=== PATIENT | female | born 1995 | race American Indian/Alaskan Native ===

== ENCOUNTER 2017-11-29 21:48 | Emergency (ER) | payer SELFPAY ==
[2017-11-29] MEDS ORDERED: Sodium Chloride 0.9% 1,000 ML IV ONE ×2 (22:32→22:42)
[2017-11-29 22:54] LABS: BASO # 0.1 K/uL (0.0-0.2); BASO % 0.7 % (0.0-2.0); EOS % 0.5 % (0.0-4.0); HEMOGLOBIN 14.9 g/dL (11.0-16.0); LYMPH # 1.9 K/uL (1.0-4.3); LYMPH % 26.2 % (20.0-40.0); MEAN CELL VOLUME 90.6 fL (81.0-99.0); MEAN CORPUSCULAR HGB CONC 35.3 g/dL (33.0-37.0); MEAN PLATELET VOLUME 10.5 fL (7.2-11.7); MONO # 0.6 K/uL (0.0-0.8); MONO % 8.3 % (0.0-10.0); NEUT # 4.7 K/uL (1.8-7.0); NEUT % 64.3 % (50.0-75.0); NRBC % 0.1 % (0.0-2.0); RBC 4.65 Mil/uL (3.80-5.20); RED CELL DISTRIBUTION WIDTH 12.1 % (11.5-14.5); WHITE BLOOD COUNT 7.3 K/uL (4.8-10.8)
[2017-11-29 23:00] LABS: SQUAMOUS EPITHIAL 24 /hpf (0-5); URINE BACTERIA FEW (<OCC); URINE BILIRUBIN 1+ (NEGATIVE); URINE BLOOD NEGATIVE (NEGATIVE); URINE CLARITY Hazy (Clear); URINE GLUCOSE (UA) NORMAL (Normal); URINE LEUKOCYTE ESTERASE 2+ Leu/uL (Negative); URINE PROTEIN 2+ mg/dL (NEGATIVE)
[2017-11-29 23:01] LABS: URINE COLOR YELLOW (YELLOW)
[2017-11-29 23:10] LABS: ALB/GLOB RATIO 1.2 (1.0-2.1); ALT/SGPT 9 U/L (9-52); AST/SGOT 21 U/L (14-36); BLOOD UREA NITROGEN 11 mg/dL (7-17); GFR AFRICAN-AMERICAN > 60; GFR NON-AFRICAN AMERICAN > 60; LIPASE 95 U/L (23-300)
[2017-11-29 23:28] LABS: CALCIUM 13.6 mg/dl (8.6-10.4)
--- NOTE | 2017-11-30 00:34 | C.PDOC ---
History Of Present Illness 22 year old female, who is currently around 4 weeks (), presents to the ED for evaluation of intermittent vomiting for the past month. Patient denies fever, chills, vaginal bleeding/discharge, hematuria. Chief Complaint (Nursing): GI Problem History Per: Patient History/Exam Limitations: no limitations Onset/Duration Of Symptoms: Intermittent Episodes, Other (1 month ) Current Symptoms Are (Timing): Still Present Additional History Per: Patient Past Medical History Reviewed: Historical Data, Nursing Documentation, Vital Signs Vital Signs: Last Vital Signs Temp 98.4 F 11/30/17 01:15 Pulse 71 11/30/17 01:15 Resp 18 11/30/17 01:15 BP 104/63 11/30/17 01:15 Pulse Ox 97 11/30/17 01:15 - Medical History PMH: No Chronic Diseases Surgical History: No Surg Hx Family History: States: Unknown Family Hx - Social History Hx Alcohol Use: No Hx Substance Use: No Review Of Systems Constitutional: Negative for: Fever, Chills Gastrointestinal: Positive for: Vomiting Genitourinary: Negative for: Hematuria, Vaginal Discharge, Vaginal Bleeding Physical Exam - Physical Exam Appears: Non-toxic, No Acute Distress Skin: Normal Color, Warm, Dry Head: Atraumatic, Normacephalic Eye(s): bilateral: Normal Inspection Oral Mucosa: Moist Neck: Supple Chest: Symmetrical, No Deformity, No Tenderness Cardiovascular: Rhythm Regular, No Murmur Respiratory: Normal Breath Sounds, No Rales, No Rhonchi, No Wheezing Gastrointestinal/Abdominal: Soft, No Tenderness, No Guarding, No Rebound Extremity: Normal ROM, Capillary Refill (less than 2 seconds ) Neurological/Psych: Oriented x3, Normal Speech, Normal Cognition ED Course And Treatment - Laboratory Results Result Diagrams: 11/29/17 22:44 11/29/17 22:44 O2 Sat by Pulse Oximetry: 98 (on RA) Pulse Ox Interpretation: Normal Medical Decision Making Medical Decision Making: Progress: Bloodwork and urinalysis ordered and reviewed. Zofran IVP and IV Fluids administered. On re-exam, patient is resting comfortable, showing no signs of distress and is stable for discharge. 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 Disposition - Disposition Referrals: [facility] [Outside] [facility] [Outside] Disposition: HOME/ ROUTINE Disposition Time: 23:15 Condition: IMPROVED Additional Instructions: FERNY MAXWELL, thank you for letting us take care of you today. Your provider was Reggie Mejia DO and you were treated for VOMITING. The emergency medical care you received today was directed at your acute symptoms. If you were prescribed any medication, please fill it and take as directed. It may take several days for your symptoms to resolve. Return to the Emergency Department if your symptoms worsen, do not improve, or if you have any other problems. Please contact your doctor or call one of the physicians/clinics you have been referred to that are listed on the Patient Visit Information form that is included in your discharge packet. Bring any paperwork you were given at discharge with you along with any medications you are taking to your follow up visit. Our treatment cannot replace ongoing medical care by a primary care provider outside of the emergency department. Thank you for allowing the [facility] team to be part of your care today. Follow up with the women's clinic next week for outpatient care. Prescriptions: Cephalexin [cephalexin] 500 mg PO BID #10 cap Vit No.126/Iron/Folic [Classic Tablet] 1 each PO DAILY #30 tablet Instructions: Urinary Tract Infection, Adult (DC), Nausea and Vomiting of (DC) Forms: [facility] (Persian) - Clinical Impression Clinical Impression: UTI (urinary tract infection), - Scribe Statement The provider has reviewed the documentation as recorded by the Scribe (Raven Hernandez) Provider Attestation: All medical record entries made by the Scribe were at my direction and personally dictated by me. I have reviewed the chart and agree that the record accurately reflects my personal performance of the history, physical exam, medical decision making, and the department course for this patient. I have also personally directed, reviewed, and agree with the discharge instructions and disposition.
[2017-11-30 01:16] VITALS: BP 104/63; PULSE 71; RESP 18; TEMP 98.4
[2017-12-02 13:36] VITALS: O2SAT 98
== END 2017-11-30 01:24 | disposition home or self-care (01) ==
LOC: C.ER 21:48
DX: O23.41 Unspecified infection of urinary tract in pregnancy, first trimester (principal); Z3A.00 Weeks of gestation of pregnancy not specified
CPT/HCPCS: 80053; 81001; 83690; 84702; 85025; 96361; 96374; 99285; J2405; J7030

== ENCOUNTER 2017-11-30 15:32 | Inpatient (IN) | payer SELFPAY ==
[2017-11-30] MEDS ORDERED: Sodium Chloride 0.9% 1,000 ML IV ONE ×2 (15:51→18:15)
[2017-11-30] MEDS ORDERED: Sodium Chloride 0.9% 1,000 ML ONE (16:30)
--- NOTE | 2017-11-30 17:00 | US ---
PROCEDURE: OB Pelvic Ultrasound HISTORY: abd. p9ain LMP: 10/14/2017 COMPARISON: None available. FINDINGS: UTERUS: Gestational sac: Single intrauterine gestation. Heart rate: 126 bpm. age (Ultrasound estimated): 6 weeks 5 days 0 weeks 3 days Fanny-gestational hemorrhage: None. Date of delivery (Ultrasound estimated) : 07/21/2018 Uterus measures 8.5 x 5 x 5.4 cm. Normal in size and appearance. CERVIX: Measures 3.4 cm. Long and closed. No cervical abnormality seen. RIGHT OVARY: The right ovary was not visualized. LEFT OVARY: Measures 5.2 x 3.4 x 4.5 cm. No solid mass. Normal flow. There is a cyst seen at the left ovary measures 3.4 x3.1 x 3.2 FREE FLUID: None. OTHER FINDINGS: None. IMPRESSION: Single intrauterine live with ultrasound estimated gestational age of 6 weeks 5 days 0 weeks 3 days. Estimated date of delivery by ultrasound is 07/21/2018. The right ovary was not visualized. 3.4 centimeters cyst seen at the left ovary likely represent corpus luteum cyst.
[2017-11-30 17:05] LABS: BASO % 0.4 % (0.0-2.0); EOS % 0.4 % (0.0-4.0); HEMOGLOBIN 12.2 g/dL (11.0-16.0); LYMPH # 1.6 K/uL (1.0-4.3); LYMPH % 27.7 % (20.0-40.0); MEAN CELL VOLUME 90.8 fL (81.0-99.0); MEAN CORPUSCULAR HEMOGLOBIN 31.5 pg (27.0-31.0); MEAN CORPUSCULAR HGB CONC 34.7 g/dL (33.0-37.0); MEAN PLATELET VOLUME 9.5 fL (7.2-11.7); MONO # 0.5 K/uL (0.0-0.8); MONO % 8.5 % (0.0-10.0); NEUT # 3.7 K/uL (1.8-7.0); NRBC % 0.1 % (0.0-2.0); RBC 3.88 Mil/uL (3.80-5.20); RED CELL DISTRIBUTION WIDTH 11.9 % (11.5-14.5); WHITE BLOOD COUNT 5.9 K/uL (4.8-10.8)
[2017-11-30 17:19] LABS: ALB/GLOB RATIO 1.3 (1.0-2.1); ALBUMIN 4.2 g/dL (3.5-5.0); ALT/SGPT 19 U/L (9-52); AST/SGOT 17 U/L (14-36); BLOOD UREA NITROGEN 7 mg/dL (7-17); CALCIUM 12.3 mg/dl (8.6-10.4); GFR AFRICAN-AMERICAN > 60; GFR NON-AFRICAN AMERICAN > 60
[2017-11-30] MEDS ORDERED: DEXTROSE IV ONE (18:17)
[2017-11-30] MEDS ORDERED: D5W IV ONE (18:17)
[2017-11-30] MEDS ORDERED: POTASSIUM CH IV ONE (18:17)
[2017-11-30] MEDS ORDERED: NS IV ONE (18:17)
--- NOTE | 2017-11-30 18:21 | C.PDOC ---
History Of Present Illness Patient is a 22 y/o female who presents to the ED for ongoing vomiting, nausea, and abdominal cramping. Patient was seen overnight for same symptoms but was sent home with antibiotics. Patient returns due to ongoing vomiting, unable to keep down antibiotics. Denies any vaginal bleeding or discharge. No other physical complaints at this time. Time Seen by Provider: 11/30/17 15:34 Chief Complaint (Nursing): Abdominal Pain History Per: Patient History/Exam Limitations: no limitations Onset/Duration Of Symptoms: Days, Persistent Current Symptoms Are (Timing): Still Present Location Of Pain/Discomfort: Diffuse Quality Of Discomfort: Cramping Associated Symptoms: Nausea, Vomiting. denies: Urinary Symptoms Recent travel outside of the [place]: No Abnormal Vaginal Bleeding: No Past Medical History Reviewed: Historical Data, Nursing Documentation, Vital Signs Vital Signs: Last Vital Signs Temp 99.2 F 11/30/17 15:39 Pulse 63 11/30/17 15:39 Resp 18 11/30/17 15:39 BP 114/77 11/30/17 15:39 Pulse Ox 99 11/30/17 18:22 - Medical History PMH: No Chronic Diseases Surgical History: No Surg Hx Family History: States: No Known Family Hx - Social History Hx Tobacco Use: No Hx Alcohol Use: No Hx Substance Use: No Review Of Systems Gastrointestinal: Positive for: Vomiting, Abdominal Pain (abdominal cramping) Genitourinary: Negative for: Dysuria, Frequency, Hematuria, Vaginal Discharge, Vaginal Bleeding Physical Exam - Physical Exam Appears: Well, Non-toxic, No Acute Distress Skin: Normal Color, Warm, Dry Head: Atraumatic, Normacephalic Oral Mucosa: Moist Chest: Symmetrical Cardiovascular: Rhythm Regular, No Murmur Respiratory: Normal Breath Sounds, No Rales, No Rhonchi, No Wheezing Gastrointestinal/Abdominal: Soft, Tenderness (suprapubic tenderness), No Guarding, No Rebound Neurological/Psych: Oriented x3, Normal Speech, Normal Cognition ED Course And Treatment - Laboratory Results Result Diagrams: 11/30/17 17:01 11/30/17 17:01 O2 Sat by Pulse Oximetry: 99 - CT Scan/US OB Pelvic US Other Rad Studies (CT/US): Interpreted By Me, Read By Radiologist CT/US Interpretation: PROCEDURE: OB Pelvic Ultrasound. HISTORY: abd. p9ain. LMP: 10/14/2017. COMPARISON: None available. FINDINGS: UTERUS: Gestational sac: Single intrauterine gestation. Heart rate: 126 bpm. age ( Ultrasound estimated): 6 weeks 5 days 0 weeks 3 days. Fanny-gestational hemorrhage: None. Date of delivery (Ultrasound estimated) : 07/21/2018. Uterus measures 8.5 x 5 x 5.4 cm. Normal in size and appearance. CERVIX: Measures 3.4 cm. Long and closed. No cervical abnormality seen. RIGHT OVARY: The right ovary was not visualized. LEFT OVARY: Measures 5.2 x 3.4 x 4.5 cm. No solid mass. Normal flow. There is a cyst seen at the left ovary measures 3.4 x3.1 x 3.2. FREE FLUID: None. OTHER FINDINGS: None. IMPRESSION: Single intrauterine live with ultrasound estimated gestational age of 6 weeks 5 days 0 weeks 3 days. Estimated date of delivery by ultrasound is 2018. The right ovary was not visualized. 3.4 centimeters cyst seen at the left ovary likely represent corpus luteum cyst. Progress Note: Clamydia-[facility], OB pelvic US, and urine C&S ordered. Rocephin, pepcid, reglan, zofran, and IV fluids administered. Patient found to be 6 weeks 5 days . On re-eval, patient remains nauseous. Case discussed with Dr Ryan who agrees with plan to admit for hyperemesis. Patient is to recieve antibiotics. Disposition Discussed With : Lupis A Feliciano Doctor Will See Patient In The: Hospital Counseled Patient/Family Regarding: Studies Performed, Diagnosis, Need For Followup - Disposition Disposition: HOSPITALIZED Disposition Time: 18:21 Condition: FAIR - Clinical Impression Clinical Impression: Vomiting, Hyperemesis gravidarum, UTI (urinary tract infection) - Scribe Statement The provider has reviewed the documentation as recorded by the Scribe Nohemy De La O All medical record entries made by the Scribe were at my direction and personally dictated by me. I have reviewed the chart and agree that the record accurately reflects my personal performance of the history, physical exam, medical decision making, and the department course for this patient. I have also personally directed, reviewed, and agree with the discharge instructions and disposition.
[2017-11-30 18:32] LABS: SQUAMOUS EPITHIAL 12 /hpf (0-5); URINE BACTERIA RARE (<OCC); URINE BILIRUBIN NEGATIVE (NEGATIVE); URINE BLOOD NEGATIVE (NEGATIVE); URINE CLARITY Hazy (Clear); URINE COLOR Yellow (YELLOW); URINE GLUCOSE (UA) NORMAL (Normal); URINE LEUKOCYTE ESTERASE 3+ Leu/uL (Negative); URINE PROTEIN NEGATIVE (NEGATIVE)
[2017-11-30] MEDS ORDERED: cefTRIAXone IV 1 gm in Dextros 50 ML IVPB ONE (18:32)
[2017-11-30] MEDS ORDERED: Potassium Ch 20mEq in D5W 1,000 ML IV ONE (18:45)
[2017-11-30 20:58] VITALS: RESP 20; O2SAT 100
[2017-11-30] MEDS ORDERED: Potassium Chloride 20 MEQ in Dextrose 5%/0.9% NS 1,000 ML IV ONE (22:40)
--- NOTE | 2017-11-30 22:59 | CP.PCM.HP ---
History of Present Illness - History of Present Illness History of Present Illness: Patient received in bed, rroom 570A; asleep. Awakened, but very sleepy. 22 y.o. , LMP 10/14/17, 6 weeks 5 days by ultrasound in E.D., admitted for management of hyperemesis gravidarum: today was patient's second visit to E.D. in 24 hours. Seen 11/29/17 for excessive vomiting. Incidental finding of UTI ; sent home on p.o. antibiotics. Unable to keep down antibiotics, or anything else all day. In E.D. received rocephin, zofran, pepcid and reglan; vomiting persists. In addition, 2+ ketonuria; potassium 3.3. Currently, reports no vomiting since being admitted. States she feels a little better. Denies vaginal bleeding, or abdominal pain. 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 Denies h/o STIs PMH: denies PSH: D&C x 2 NKDA Meds: none Soc Hx: (+) daily marijuana use. Denies tobacco, other illicit drug or EtOH use. Lives with an aunt. 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 Father alive 38 - no med issues. No known fam h/ o cancer Present on Admission - Present on Admission Any Indicators Present on Admission: No Review of Systems - Review of Systems All systems: reviewed and no additional remarkable complaints except - Gastrointestinal Gastrointestinal: Nausea, Vomiting - Menstruation Menstruation: As Per HPI Past Patient History - Infectious Disease Hx of Infectious Diseases: None - Tetanus Immunizations Tetanus Immunization: Unknown - Past Medical History & Family History Past Medical History?: No Pertinent Family History: mother - HTN - Past Social History Smoking Status: Never Smoked Alcohol: None Drugs: Cannabis (daily) Home Situation {Lives}: With Family - PSYCHIATRIC Hx Substance Use: No - SURGICAL HISTORY Hx Surgeries: No Meds Allergies/Adverse Reactions: Allergies Allergy/AdvReac Type Severity Reaction Status Date / Time No Known Allergies Allergy Unverified 11/30/17 15:40 Physical Exam - Constitutional Appears: Well, No Acute Distress - Head Exam Head Exam: NORMAL INSPECTION - Neck Exam Neck exam: Positive for: Full Rom - Respiratory Exam Respiratory Exam: NORMAL BREATHING PATTERN - Cardiovascular Exam Cardiovascular Exam: REGULAR RHYTHM - GI/Abdominal Exam GI & Abdominal Exam: Soft - Exam Additional comments: Patient sleepy; does not desire to be examined at this time - Extremities Exam Extremities exam: Positive for: full ROM Results - Vital Signs Recent Vital Signs: Last Vital Signs Temp 98.4 F 11/30/17 20:57 Pulse 67 11/30/17 20:57 Resp 20 11/30/17 20:57 BP 97/66 L 11/30/17 20:57 Pulse Ox 100 11/30/17 20:57 - Labs Result Diagrams: 11/30/17 17:01 12/01/17 08:51 Labs: Laboratory Results - last 24 hr 11/30/17 11/30/17 11/30/17 17:01 17:01 17:01 WBC 5.9 RBC 3.88 Hgb 12.2 D Hct 35.3 MCV 90.8 MCH 31.5 H MCHC 34.7 RDW 11.9 Plt Count 157 MPV 9.5 Neut % (Auto) 63.0 Lymph % (Auto) 27.7 [place] % (Auto) 8.5 Eos % (Auto) 0.4 Baso % (Auto) 0.4 Neut # (Auto) 3.7 Lymph # (Auto) 1.6 [place] # (Auto) 0.5 Eos # (Auto) 0.0 Baso # (Auto) 0.0 Sodium 140 Potassium 3.3 L Chloride 99 Carbon Dioxide 27 Anion Gap 17 BUN 7 Creatinine 0.6 L Est GFR ( Amer) > 60 Est GFR (Non-Af Amer) > 60 Random Glucose 78 Calcium 12.3 H Total Bilirubin 2.2 H AST 17 ALT 19 Alkaline Phosphatase 60 Total Protein 7.5 Albumin 4.2 Globulin 3.3 Albumin/Globulin Ratio 1.3 Beta HCG, Quant 49146.00 Urine Color Urine Clarity Urine pH Ur Specific [place] Urine Protein Urine Glucose (UA) Urine Ketones Urine Blood Urine Nitrate Urine Bilirubin Urine Urobilinogen Ur Leukocyte Esterase Urine WBC (Auto) Urine RBC (Auto) Ur Squamous Epith Cells Urine Bacteria Hyaline Casts Blood Type A POSITIVE Antibody Screen Negative 11/30/17 18:20 WBC RBC Hgb Hct MCV MCH MCHC RDW Plt Count MPV Neut % (Auto) Lymph % (Auto) [place] % (Auto) Eos % (Auto) Baso % (Auto) Neut # (Auto) Lymph # (Auto) [place] # (Auto) Eos # (Auto) Baso # (Auto) Sodium Potassium Chloride Carbon Dioxide Anion Gap BUN Creatinine Est GFR ( Amer) Est GFR (Non-Af Amer) Random Glucose Calcium Total Bilirubin AST ALT Alkaline Phosphatase Total Protein Albumin Globulin Albumin/Globulin Ratio Beta HCG, Quant Urine Color Yellow Urine Clarity Hazy Urine pH 6.0 Ur Specific [place] 1.016 Urine Protein Negative Urine Glucose (UA) Normal Urine Ketones 2+ H Urine Blood Negative Urine Nitrate Negative Urine Bilirubin Negative Urine Urobilinogen 4.0 H Ur Leukocyte Esterase 3+ H Urine WBC (Auto) 81 H Urine RBC (Auto) 4 H Ur Squamous Epith Cells 12 H Urine Bacteria Rare Hyaline Casts 3-5 H Blood Type Antibody Screen Assessment & Plan - Assessment and Plan (Free Text) Assessment: 22 y.o. P0020, 6w 5d by ultrasound today in E.D. - hyperemesis gravidarum for stabilization. Undesired . Once able to tolerate p.o., upon discharge will secure TOP. Patient expressed an understanding and agrees; no questions or concerns offered. Patient is clinically stable. Plan: 1) Admit 2) NPO 3) Clear liquid diet in AM 4) continue IVFs: D5NS at 150 cc/hr 5) Continue rocephin 1 gram IVPB q 12 hours 6) Continue anti-emetics 7) comp panel in AM 8) encourage ambulation - Date & Time Date: 11/30/17 Time: 23:00
[2017-12-01] MEDS ORDERED: Potassium Chloride 20 MEQ in Dextrose 5%/0.9% NS 1,000 ML IV ONE ×2 (00:30→12:30)
[2017-12-01 09:19] LABS: ALB/GLOB RATIO 1.1 (1.0-2.1); ALBUMIN 3.2 g/dL (3.5-5.0); ALT/SGPT 18 U/L (9-52); AST/SGOT 14 U/L (14-36); BLOOD UREA NITROGEN 3 mg/dL (7-17); CALCIUM 10.8 mg/dl (8.6-10.4); GFR AFRICAN-AMERICAN > 60; GFR NON-AFRICAN AMERICAN > 60
--- NOTE | 2017-12-01 12:24 | CP.PCM.PN ---
Subjective - Date & Time of Evaluation Date of Evaluation: 12/01/17 Time of Evaluation: 12:10 - Subjective Subjective: Patient received sitting up in bed, room 570A, in good spirits. Denies any vomiting since admission - "I'm just spitting up". Drank apple juice from breakfast tray - no vomiting. Voiding without difficulty. [place] dizzy when she first got up; subsequent to that first time, denies dizziness, lightheadedness. Reports mild right sided pain ..."I think it's gas". Denies vaginal bleeding or discharge. Objective - Vital Signs/Intake and Output Vital Signs (last 24 hours): Temp Pulse Resp BP Pulse Ox 98.1 F 68 20 99/62 L 100 12/01/17 08:30 12/01/17 08:30 12/01/17 08:30 12/01/17 08:30 12/01/17 08:30 Intake and Output: 12/01/17 12/01/17 06:59 18:59 Intake Total 400 Balance 400 - Medications Medications: Current Medications Ceftriaxone Sodium 1 gm/ (Sodium Chloride) 100 mls @ 100 mls/hr IVPB Q12H [facility] PRN Reason: Protocol Last Admin: 12/01/17 09:47 Dose: 100 mls/hr Potassium Chloride 20 meq/ (Dextrose/Sodium Chloride) 1,010 mls @ 75 mls/hr IV .[id number] ONE Stop: 12/02/17 01:40 Ondansetron HCl (Zofran Inj) 4 mg IVP Q8H [facility] Last Admin: 12/01/17 06:37 Dose: 4 mg - Labs Labs: 11/30/17 17:01 12/01/17 08:51 - Constitutional Appears: Well, No Acute Distress - Head Exam Head Exam: NORMAL INSPECTION - Eye Exam Additional comments: pterygium noted right eye - ENT Exam ENT Exam: Mucous Membranes Moist - Respiratory Exam Respiratory Exam: NORMAL BREATHING PATTERN - Cardiovascular Exam Cardiovascular Exam: REGULAR RHYTHM - GI/Abdominal Exam GI & Abdominal Exam: Soft, Normal Bowel Sounds Additional comments: Non distended. No RLQ tenderness elicited to deep palpation; no rebound tenderness - Exam External exam: NORMAL EXTERNAL EXAM - Extremities Exam Extremities Exam: Full ROM - Neurological Exam Neurological Exam: Alert, Awake, Oriented x3 - Psychiatric Exam Psychiatric exam: Normal Affect, Normal Mood - Skin Skin Exam: Dry, Intact, Normal Color, Warm Assessment and Plan - Assessment and Plan (Free Text) Assessment: HD#2, 22 y.o. P0020, 6w 6d, hyperemesis gravidarum - doing well; no vomiting since admission. Undesired . UTI on rocephin. Afebrile, vital signs stable. D/W patient advance of diet - eat small amounts. Patient encouraged to ambulate. Patient expressed an understanding and agrees. No questions offered. Patient is clinically stable. Plan: 1) Continue IVFs: KVO 75cc/hr with 20 mEq KCl x 1 litre; then, D/C IVFs 2) Regular diet: "BRAT" 3) Continue rocephin 4) Continue zofran 5) Encourage ambulation 6) F/U cultures 7) Anticipate discharge home 12/02/17
--- NOTE | 2017-12-02 07:28 | CP.PCM.PN ---
Subjective - Date & Time of Evaluation Date of Evaluation: 12/02/17 Time of Evaluation: 07:25 - Subjective Subjective: s: tolerating brat diet; denies emesis. denies abd pain Objective - Vital Signs/Intake and Output Vital Signs (last 24 hours): Temp Pulse Resp BP Pulse Ox 98.2 F 69 20 100/63 100 12/01/17 23:35 12/01/17 23:35 12/01/17 23:35 12/01/17 23:35 12/01/17 23:35 Intake and Output: 12/02/17 12/02/17 06:59 18:59 Intake Total 1150 Balance 1150 - Medications Medications: Current Medications Ceftriaxone Sodium 1 gm/ (Sodium Chloride) 100 mls @ 100 mls/hr IVPB Q12H [facility] PRN Reason: Protocol Last Admin: 12/01/17 21:48 Dose: 100 mls/hr Ondansetron HCl (Zofran Inj) 4 mg IVP Q8H [facility] Last Admin: 12/02/17 06:09 Dose: Not Given - Labs Labs: 11/30/17 17:01 12/01/17 08:51 - Constitutional Appears: Well, No Acute Distress - Head Exam Head Exam: ATRAUMATIC, NORMAL INSPECTION, NORMOCEPHALIC - Respiratory Exam Respiratory Exam: NORMAL BREATHING PATTERN. absent: Accessory Muscle Use, Respiratory Distress - Cardiovascular Exam Cardiovascular Exam: RRR - GI/Abdominal Exam GI & Abdominal Exam: Soft. absent: Distended, Guarding, Tenderness - Psychiatric Exam Psychiatric exam: Normal Affect, Normal Mood Assessment and Plan - Assessment and Plan (Free Text) Assessment: Impression: 7wk IUP- unwanted preg Hyperemesis gravidarum UTI Plan: Plan: d/c home today. rx zofran 4mg 1po q8hr prn n/v#12 rf x1 rx keflex 500mg bid x6days pt to f/u in obgyn clinic within 1wk f/u w/ family planning for undesired preg
[2017-12-02 07:39] VITALS: BP 108/66; PULSE 60; TEMP 98.1
== END 2017-12-02 10:30 | disposition home or self-care (01) | DRG 781 ==
LOC: C.ER 15:32 → C.9E 18:20 → C.5S 19:49
PROVIDERS: ADMIT Obstetrics & Gynecology; ATTEND Obstetrics & Gynecology
DX: O21.0 Mild hyperemesis gravidarum (principal); O23.41 Unspecified infection of urinary tract in pregnancy, first trimester; Z3A.01 Less than 8 weeks gestation of pregnancy; F12.90 Cannabis use, unspecified, uncomplicated